=== PATIENT | male | born 1970 | race Caucasian/White ===

== ENCOUNTER 2020-12-02 20:41 | Emergency (ER) | payer MEDICARE, MEDICAID, SELFPAY ==
[2020-12-02 20:43] VITALS: BP 148/69; PULSE 74; RESP 14; TEMP 37.1; O2SAT 100; BMI 26.9
--- NOTE | 2020-12-02 22:33 | HMH.EDGENADL ---
ED Disposition Clinical Impression: Corneal foreign body Qualifiers: Encounter type: initial encounter Laterality: right Qualified Code(s): T15.01XA - Foreign body in cornea, right eye, initial encounter Disposition: Home, Self-Care Condition on Discharge: Good Additional Instructions: Use gentamicin drops in right eye, 1 drop every 4 hours while awake. Follow-up with Dr. Sanchez at [facility] tomorrow. Call in the morning to schedule [place] [address] Additional instructions for EYE PAIN or INJURY: Follow up with an front desk as soon as possible. Return to the emergency department if severe pain, loss of vision, pus drainage, severe swelling or redness of eyelids. Referrals: Preston Govea MD [Primary Care Provider] - - Critical Care Critical Care Time: No Attestation: On 12/02/20, the high probability of a clinically significant, sudden or life threatening deterioration of the following system(s) required my full and direct attention, intervention and personal management. The time I documented below is in addition to time spent performing reported procedures but includes the following listed in this critical care notation. Medical Decision Making - Dc Inquiry Pt receiving controlled substance: No Vital Signs: 12/02/20 20:43 Temperature 98.7 F Temperature Source Oral Pulse Rate [Left Radial] 74 Respiratory Rate 14 Blood Pressure [Right Arm] 148/69 H Blood Pressure Mean [Right Arm] 95 Blood Pressure Source [Right Arm] Automatic Cuff Blood Pressure Position [Right Arm] Supine 02 Sat by Pulse Oximetry 100 Oxygen Delivery Method Room Air Medical Decision Narrative: Symptoms completely relieved with tetracaine drops. General Adult HPI - General Chief complaint: Eye Problems Stated complaint: FB in right eye 12/02/20 @ 18:30 Time Seen by Provider: 12/02/20 22:20 Mode of Arrival: Ambulatory Limitations: No Limitations Description of Symptoms (Recalled from ER Triage Doc. by RN): Pt c/o right eye irritation since 6pm. He denies eye pain. Right eye is red and watery. He states he was working in the garage and thinks something may have fallen in his eye. - History of Present Illness HPI narrative: States something fell in his eye while he was walking in the garage at about 6 PM. He flushed his eye without improvement. He is a glasses wearer, does not wear contacts. No change in vision. - Related Data Home Medications Medication Instructions Recorded Confirmed Gabapentin [Neurontin 600mg 600 mg PO TID 12/02/20 12/02/20 tablet] Methadone HCl [Methadone 10mg 10 mg PO DAILY 12/02/20 12/02/20 Tablet] Trazodone HCl 100 mg PO BID 12/02/20 12/02/20 Allergies Allergy/AdvReac Type Severity Reaction Status Date / Time No Known Allergies Allergy Verified 12/02/20 21:14 [facility] History - Hepatitis A Screen Drug use history?: No High risk sexual behaviors?: No History of sexually transmitted infection?: No Currently employed?: No Childcare worker?: No Do you have indoor plumbing?: Yes Do you have electricity?: Yes Attestation statement:: This patient has been screened for Hepatitis A risk factors. I have reviewed the patient's past medical history: Yes ROS Obtained: Yes Systems reviewed as appropriate & no additional complaints - Constitutional Constitutional: Denies fever(s) - Eyes Eyes: Denies change in vision, Reports irritation, Denies photophobia Physical Exam - General General appearance: alert, in no apparent distress - Head Head exam: atraumatic, normocephalic - Eye Eye exam: Present: normal appearance, EOMI - Expanded Eye Exam Eyelids: bilateral: normal inspection Pupils: Bilateral: regular, round Sclera/Conjunctival: bilateral: normal inspection Anterior chamber: bilateral: normal inspection Both Eyes Image:
[2020-12-02 22:53] VITALS: BP 125/70; PULSE 82; RESP 18; TEMP 36.6; O2SAT 98
== END 2020-12-02 22:55 | disposition home or self-care (01) ==
PROVIDERS: Emergency Provider Emergency Medicine; PCP Family Medicine
DX: T15.01XA Foreign body in cornea, right eye, initial encounter (principal); W45.8XXA Other foreign body or object entering through skin, initial encounter; Y92.018 Other place in single-family (private) house as the place of occurrence of the external cause
CPT/HCPCS: 99281

== ENCOUNTER 2022-08-19 12:16 | Emergency (ER) | payer MEDICARE, MEDICAID, SELFPAY ==
[2022-08-19 12:28] VITALS: BP 121/76; PULSE 65; RESP 18; TEMP 37.1; O2SAT 97; BMI 25.8
[2022-08-19 12:40] VITALS: BP 121/76; PULSE 65; RESP 18; TEMP 37.1; O2SAT 97; BMI 25.7
--- NOTE | 2022-08-19 12:55 | XR_ITS ---
FINAL REPORT CLINICAL HISTORY: PAIN in left forearm FINDINGS: 2 views of the left forearm were obtained. There is no acute fracture or dislocation. There are [id number] degenerative changes at the elbow. 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 There is no soft tissue abnormality. IMPRESSION: No acute abnormality. Reviewed, Interpreted and Dictated by Petr Merritt III, MD Transcribed by Mumtaz Amaya Authenticated and [facility]
--- NOTE | 2022-08-19 12:56 | HMH.EDGENADL ---
Discharge Plan Disposition Patient Disposition: Home, Self-Care Condition: Good Prescriptions Prescriptions: No Action gabapentin 600 MG tablet 600 mg PO TID methadone 10 MG tablet 10 mg PO DAILY trazodone 100 MG tablet 100 mg PO BID Referrals Follow up/Referrals: Daniele Louis DO [Staff Physician] - See instructions (call office for appointment) Preston Govea MD [Primary Care Provider] - See instructions Clinical Impressions Clinical Impression: Forearm pain Instructions Patient Instructions: DI for Acute Pain -- Adult, Muscle Strain Discharge ED Provider: Nataly Paul General Adult HPI General Chief complaint: PAIN Stated complaint: LT arm pain no accident Time Seen by Provider: 08/19/22 12:57 Mode of Arrival: Ambulatory Source of Information: Patient Limitations: No Limitations Description of Symptoms (Recalled from ER Triage Doc. by RN): PATIENT C/O LEFT ARM PAIN X 2 DAYS. NO KNOWN INJURY History of Present Illness HPI narrative: Patient states that he does alot of work with his hands States that a couple days before he was using a chain saw and working on his [employer] States that he was lifting pulling and tugging States that he is not sure if he may have hit his arm or pulled a muscle lifting something but he had a small knot like area pop up on his left forearm States that he wrapped it in reuben wrap and it was doing better then he was pulling and tugging again a couple days ago and started hurting again and the knot was back States that only hurts with certain ways he moves his arm Related Data Home Medications Medication Instructions Recorded Confirmed gabapentin 600 mg tablet 600 mg PO TID Pain 12/02/20 12/02/20 methadone 10 mg tablet 10 mg PO DAILY Pain 12/02/20 12/02/20 trazodone 100 mg tablet 100 mg PO BID Pain 12/02/20 12/02/20 Allergies Allergy/AdvReac Type Severity Reaction Status Date / Time No Known Allergies Allergy Verified 12/02/20 21:14 [facility] Disclaimer: The information contained in this section may have been updated after the patient was seen, as this information can be updated by other users. Medical History (Updated 08/19/22 @ 14:11 by Nataly Paul APRN) Asthma Social History (Updated 08/19/22 @ 12:46 by Teena Qureshi RN) Smoking Status: Current every day smoker alcohol intake: never current occupational status: other Travel in the last 8 weeks: None ROS Obtained: Yes All systems reviewed & no additional complaints except as documented and Yes Systems reviewed as appropriate & no additional complaints except as documented Constitutional Constitutional: Reports system reviewed and no additional complaints, except as documented and Reports as per HPI ENT Ears, Nose, Mouth, and Throat: Reports system reviewed and no additional complaints, except as documented and Reports as per HPI Cardiovascular Cardiovascular: Reports system reviewed and no additional complaints, except as documented and Reports as per HPI Respiratory Respiratory: Reports system reviewed and no additional complaints, except as documented and Reports as per HPI Gastrointestinal Gastrointestingal: Reports system reviewed and no additional complaints, except as documented and as per HPI Musculoskeletal Musculoskeletal: Reports system reviewed and no additional complaints, except as documented, Reports as per HPI and Reports other (muscle pain left forearm with knot ) Physical Exam General General appearance: alert and in no apparent distress Respiratory Respiratory exam: Present normal lung sounds bilaterally; Absent respiratory distress or wheezes Cardiovascular Cardiovascular exam: Present regular rate, normal rhythm and normal heart sounds Expanded Upper Extremity Exam Left: Forearm/Wrist exam: Present tenderness (small raised area noted denies known injury no discoloration no redness no warmth); Absent ecchymosis or erythema
[2022-08-19 14:20] VITALS: BP 121/76; PULSE 65; RESP 18; TEMP 37.1; O2SAT 97
== END 2022-08-19 14:24 | disposition home or self-care (01) ==
LOC: ER 12:30 → UTC 12:32
PROVIDERS: Emergency Provider Nurse Practitioner; PCP Family Medicine
DX: M79.632 Pain in left forearm
CPT/HCPCS: 73090; 99212; G0463